=== PATIENT | male | born 1995 | race Caucasian/White ===

== ENCOUNTER 2017-07-04 20:35 | Emergency (ER) | payer OTHER ==
[~2017-07-04] VITALS: Ht 175.3 cm; Wt 95.3 kg
[2017-07-04] MEDS ORDERED: CLARITIN10 MG PO (20:46)
[2017-07-04] MEDS ORDERED: [UNRECOGNIZED DRUG - REMARK] (20:47)
[2017-07-04 21:05] LABS: ABSOLUTE EOSINOPHILS 0.2 thou/uL (0.0-0.7); ABSOLUTE LYMPHOCYTES 1.8 thou/uL (0.8-5.3); ABSOLUTE MONOCYTES 0.7 thou/uL (0.0-1.2); ABSOLUTE NEUTROPHILS 6.8 thou/uL (1.6-8.1); BASOPHILS 0.4 %; EOSINOPHILS 1.8 %; HEMATOCRIT 46.2 % (42.0-52.0); HEMOGLOBIN 16.3 gm/dL (14.0-18.0); LYMPHOCYTES 18.9 %; MCH 33.2 pg (26.0-34.0); MCHC 35.3 g/dL (28.0-37.0); MONOCYTES 7.1 %; MPV 8.6 fl. (7.2-11.1); NUCLEATED RBCS 0 /100WBC; PLATELET COUNT* 169 thou/uL (150-400); POLYS 71.8 %; RBC 4.91 mil/uL (4.50-6.00); RDW-CV 12.1 % (10.5-14.5); WBC 9.4 thou/uL (4.0-11.0)
[2017-07-04 21:20] LABS: ANION GAP 6 mmol/L (7-16); BUN 12 mg/dL (7-18); CALCIUM 8.4 mg/dL (8.5-10.1); CHLORIDE 105 mmol/L (98-107); CO2 28 mmol/L (21-32); GLUCOSE 104 mg/dL (70-99); POTASSIUM 4.4 mmol/L (3.5-5.1); SODIUM 139 mmol/L (136-145)
[2017-07-04 21:29] LABS: ALBUMIN 3.8 g/dL (3.4-5.0); ALKALINE PHOSPHATASE 56 U/L (46-116); MAGNESIUM 1.7 mg/dL (1.8-2.4); SGOT 11 U/L (15-37); SGPT 21 U/L (30-65); TOTAL BILIRUBIN 0.8 mg/dL (<0.1-1.0); TOTAL PROTEIN 6.7 g/dL (6.4-8.2); TROPONIN-I LEVEL <0.06 ng/mL (<0.06)
[2017-07-04 21:59] VITALS: BP 126/64
--- NOTE | 2017-07-05 09:59 | EKG ---
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
== END 2017-07-04 22:00 | disposition home or self-care (01) ==
LOC: M.ERS 20:35
PROVIDERS: Emergency Medicine
DX: R55 Syncope and collapse (principal)

== ENCOUNTER 2018-09-03 21:15 | Emergency (ER) | payer OTHER ==
[~2018-09-03] VITALS: Ht 175.3 cm; Wt 93.0 kg
[~2018-09-03 21:15] MED LIST: CLARITIN10 MG PO; [UNRECOGNIZED DRUG - REMARK]
[2018-09-03] MEDS ORDERED: NORCO 7.5-3251 EACH PO (22:51)
[2018-09-03 22:59] VITALS: BP 145/68
== END 2018-09-03 23:00 | disposition home or self-care (01) ==
LOC: M.ERS 21:15
DX: S63.281A Dislocation of proximal interphalangeal joint of left index finger, initial encounter (principal); W51.XXXA Accidental striking against or bumped into by another person, initial encounter; Y93.61 Activity, american tackle football; Y92.89 Other specified places as the place of occurrence of the external cause; Y99.8 Other external cause status